=== PATIENT | male | born 1945 | race Caucasian/White ===

== ENCOUNTER → 2016-11-16 08:09 | Outpatient (CLI) | payer MEDICARE, OTHER ==
[~2016-11-16 08:09] MED LIST: ACETAMINOPHEN500 M1 PO; ATIVAN0.5 MG PO; BAYER CHEWABLE81 MG PO; CELEBREX200 MG PO; CRESTOR10 MG PO; DILAUDID2 MG PO; DIOVAN160 MG PO; FLUTICASONE PRO16 GM NASAL; LEVAQUIN750 MG PO; PEPCID20 MG PO; PROAIR HFA8.5 GM INH; TIMOPTIC 0.25% O5 M1 EACH EYE; ULTRAM50 MG PO
== END | disposition home or self-care (01) ==
LOC: D.CT 08:09
DX: J32.9 Chronic sinusitis, unspecified (principal)

== ENCOUNTER 2016-12-13 08:15 | Emergency (ER) | payer MEDICARE, OTHER ==
[2016-12-13 09:11] LABS: BASOPHILS 0.5 % (0-2); EOSINOPHILS 3.7 % (0-7); HEMATOCRIT 41.1 % (42.0-54.0); HEMOGLOBIN 14.1 g/dL (13.5-17.5); IMMATURE GRANULOCYTES 0.7 % (0-5); LYMPHOCYTES 18.7 % (15-50); MCH 30.9 pg (26.0-34.0); MCHC 34.3 g/dL (31.0-37.0); MCV 89.9 fL (80.0-100.0); MEAN PLATELET VOLUME 9.1 fL (7.4-10.4); MONOCYTES 8.9 % (2-11); NEUTROPHILS 67.5 % (40-80); PLATELET COUNT 194 10x3/uL (130-400); RBC 4.57 10x6/uL (4.20-6.10); RDW 14.3 % (11.5-14.5); WBC 5.7 10x3/uL (4.8-10.8)
[2016-12-13 09:25] LABS: ALBUMIN 2.8 g/dL (3.4-5.0); BILIRUBIN - TOTAL 0.7 mg/dL (0.2-1.3); CALCIUM 8.8 mg/dL (8.5-10.1); CREATININE - SERUM 1.5 mg/dL (0.6-1.3); MAGNESIUM - SERUM 1.6 mg/dL (1.8-2.4); PROTEIN - SERUM 6.8 g/dL (6.4-8.2)
[2016-12-13 09:51] LABS: APPEARANCE CLEAR (CLEAR); BILIRUBIN NEGATIVE (NEGATIVE); COLOR DK YELLOW (YELLOW); GLUCOSE NEGATIVE (NEGATIVE); KETONE NEGATIVE (NEGATIVE); LEUKOCYTE ESTERASE TRACE (NEGATIVE); NITRITE NEGATIVE (NEGATIVE); PROTEIN TRACE mg/dL (NEGATIVE); SPECIFIC GRAVITY 1.015 (1.005-1.020); UROBILINOGEN NORMAL (NORMAL)
[2016-12-13 09:52] LABS: BACTERIA FEW /hpf (NONE SEEN); EPITHELIAL CELLS OCC /hpf (0-5); MUCUS <1+ /lpf (NONE SEEN); RED CELLS - URINE 0-5 /hpf (0-5); WHITE CELLS - URINE 0-5 /hpf (0-5)
[2016-12-13 10:01] LABS: GRANULAR CAST OCC /lpf (NONE SEEN)
== END 2016-12-13 12:00 | disposition home or self-care (01) ==
LOC: D.ER 08:15
PROVIDERS: Emergency Medicine
DX: R06.00 Dyspnea, unspecified (principal); E86.0 Dehydration; S37.009A Unspecified injury of unspecified kidney, initial encounter; C34.90 Malignant neoplasm of unspecified part of unspecified bronchus or lung; C79.31 Secondary malignant neoplasm of brain; I10 Essential (primary) hypertension; E78.5 Hyperlipidemia, unspecified; I49.3 Ventricular premature depolarization

== ENCOUNTER 2016-12-17 14:40 | Emergency (ER) | payer MEDICARE, OTHER | END 2016-12-17 17:45 | disposition PTX | LOC: D.ER 14:40 | DX: R09.2 Respiratory arrest (principal); C34.90 Malignant neoplasm of unspecified part of unspecified bronchus or lung; C79.31 Secondary malignant neoplasm of brain; E86.0 Dehydration; I10 Essential (primary) hypertension; E78.5 Hyperlipidemia, unspecified ==